=== PATIENT | female | born 1970 | race Caucasian/White ===

== ENCOUNTER 2022-04-01 06:59 | Day surgery (SDC) | payer BC, SELFPAY ==
--- OUTSIDE RECORDS SUMMARY | 2022-02-28 10:43 | XMS_ITS | Continuity of Care Document ---
:1970 Author Care Team Providers Name Role Phone MD Martha Langley Primary Care Physician MD Violet Castillo Attending Physician Allergies, Adverse Reactions, Alerts Allergen Type Severity Reaction Last Verified Status Updated Tetracycline Allergy Moderate soft spot February 07, Yes Active buldged as 2021 infant Penicillin Allergy Moderate rash February 07, Yes Active 2021 Social History Smoking Status Status Start Date End Date Date of Observat ion Never smoked tobacco February 07, 2 022 8:50am (finding) Additional Data Assigned Sex Female Medications Medication Status Dose Units Route Directions Qty Days Start End Ins tructions Date Date Calcium Active 1 Citrate-Vitami n D (Calcium Citrate/Vitami n D) 1 Tab TAB Cholecalcifero Active 5000 UNIT PO Daily 100 l (Vitamin D) 5,000 Unit TAB Citalopram Active 20 MG PO Daily Hydrobromide Estradiol Active 1 G Vaginal (Estradiol) 0.1 Mg/Gm CRE Hydroxyzine Active MG Pamoate (Vistaril) 25 Mg CAP Multiple Active 1 TAB PO Vitamin (Multi Vitamin) 1 Tab TAB Tizanidine Hcl Active 4 MG PO Every 8 Hours as needed Triamcinolone Active 1 SNEHA TOP Twice A Day APPLY TO Acetonide as needed AFFECT ED AREA (Ointment) Cyclobenzaprin Discontinu 10 MG PO Bedtime as J une e Hcl ed needed 2021 8:17a m Oxycodone/Acet Discontinu 1-2 TAB PO Every 4 February aminophen ed Hours as , , (Percocet) 5 needed 2020 2020 Mg/325 Mg TAB 10:50a 9:04a m m Immunizations Immunization Event Date Not Given Dose Assistant Product Manager Lot Vac cine Reason Number Number Informatio n Statement (VIS) Deta il COVID-19 Moderna October 082020 COVID-19 Moderna November 292020 COVID-19 Moderna July 112020 Influenza May 082009 Influenza June 172010 Influenza June 182011 Influenza May 112012 Influenza May 132014 Influenza May 122014 Influenza May 14, 2015 Influenza May 15, 2015 Influenza May 16, 2016 Influenza May 172017 Influenza June 152017 Influenza July 052018 Influenza July 022019 Influenza May 212020 [facility] September 302013 [facility] October 092013 Shingrix November 212021 Tdap December 27 (adolescent/adul 2012 t) Procedures Procedure Date Performed Status X-ray of right knee, one or February 07, 2022 completed two views Vital Signs Vital Reading Result Reference Range Collection Date/ Time Height 64 [in_i] February 07, 2022 8 :18am Height 162.56 cm February 07, 2022 8 :18am Weight 196.00 [lb_av] February 07, 2022 8 :18am Weight 88.500170 kg February 07, 2022 8 :18am Body Temperature 98.5 [degF] February 07, 2022 8:18am Body Temperature 36.94 [place] February 07, 2022 8:18am Body surface area 1.94 m2 February 07, 2022 8:18am BMI (Body Mass Index) 33.6 kg/m2 February 07, 2022 8:18am Advance Directives Advance Directive Response Recorded Date/Time Has patient completed a No February 21, 2021 8:05am Health Care Directive? Insurance Providers Guarantor Bj Curry Address [address] [id number] Contact Info. Home Phone: Payer Policy Id Coverage Id Subscriber's Subscriber Id Effective E xpiration Name Date Date [place] [id number] [place] [id number] Encounters Encounter Location(s) Arrival/Admit Date Discharge/Depart Date Provider(s) Registered Clinics February 07, 2022 [facility] on Practice 8:50am A Office Visit Orthopedic February 07, 2022 Anna, [facility] on Services 8:50am Violet [facility] February 07, 2022 [facility] 8[facility]am Violet CONTRERAS Recent Diagnosis Onset Date Pain Assessments Diagnosis Onset Date Resolution Status Pain Plan of Treatment Instructions from visit on: 02/07/22 Please follow the provider's instructions as discussed during your visit. Future Tests Future scheduled test information is unavailable Pending Tests Pending diagnostic test information is unavailable Future Visits Future appointment information is unavailable Referrals to Other Providers Referral information is unavailable Future Procedures Future procedure information is unavailable Future Medications Future medication information is unavailable Patient Instructions Patient instructions are unavailable Goals Ambulatory Goals Reach or maintain optimal well being.
[2022-04-01] VITALS (25 sets, daily range): BP systolic 85–120; BP diastolic 40–73; PULSE 52–74; RESP 14–18; TEMP 35.4–36.7; O2SAT 92–100; BMI 34.7
[2022-04-01] MEDS: CELECOXIB 200 MG CAPSULE PO ×2 (07:05→20:56)
[2022-04-01] MEDS: OXYCODONE (CR) 10 MG TAB.ER.12H PO (07:05)
[2022-04-01] MEDS: ACETAMINOPHEN 500 MG TABLET 1000 MG PO ×3 (07:05→19:47)
[2022-04-01] MEDS: LACTATED RINGERS 1000 ML 1,000 ML 100 ML IV (07:30)
[2022-04-01] MEDS: ETHYL CHLORIDE 1 APPLICATION 1 APPLIC TOPICAL (07:53)
[2022-04-01] MEDS: SODIUM CHLORIDE 0.9 % (FLUSH) 10 ML SYRINGE IVF (07:53)
--- NOTE | 2022-04-01 08:58 | SUR.PREOP ---
TIME OUT 857 RIGHT KNEE NERVE BLOCK PER PATIENT, MI CHIN FOR RIGHT TKA, CONSENT OBTAINED PRIOR
[2022-04-01] MEDS: fentaNYL 100 MCG/2 ML inj IVP (09:00)
[2022-04-01] MEDS: MIDAZOLAM HCL 1 MG/ML inj IVP (09:00)
--- NOTE | 2022-04-01 09:04 | W.PM.NB ---
Nerve Block Nerve Block Type of block requested by surgeon for post-operative analgesia: adductor canal Side: right Time out performed: Yes Verification of patient name: Yes Verification of date of : Yes Site marking: site marked Name of person performing procedure: Aldo Continuous monitoring Was continuous monitoring of O2 sat, B/P, monitoring specialist, recorded every 15 minutes?: Yes Procedure Checklist: sterile prep, needles and gloves Ultrasound guided. Images saved: Yes Medications given in 5ml increments after negative aspiration: Ropivicaine %: 0.5 mL: 20 Needle gauge: 22 Decadron (mg): 10 Precedex (mcg): 25 Patient tolerated procedure well: Yes Additional comments: Needle noted adjacent to nerve Block Charges Block Charge (with Pro Fee): Femoral Nerve Use of Ultrasound Machine for Block: Yes- US Guidance/pain block
--- NOTE | 2022-04-01 09:05 | W.PM.NB ---
Nerve Block Nerve Block Type of block requested by surgeon for post-operative analgesia: geniculars Side: right Time out performed: Yes Verification of patient name: Yes Verification of date of : Yes Site marking: site marked Name of person performing procedure: Aldo Continuous monitoring Was continuous monitoring of O2 sat, B/P, radiation monitor, recorded every 15 minutes?: Yes Procedure Checklist: sterile prep, needles and gloves Medications given in 5ml increments after negative aspiration: Ropivicaine %: 0.5 mL: 9 Needle gauge: 25 Patient tolerated procedure well: Yes Block Charges Block Charge (with Pro Fee): Genicular Nerve Block Use of Ultrasound Machine for Block: No
[2022-04-01] MEDS: CEFAZOLIN 2 GM INJ IVP (09:49)
--- NOTE | 2022-04-01 11:07 | CRLHL7_ITS ---
For Patients: As a result of the Cures Act, medical imaging exams and procedure reports are released immediately into your electronic medical record. You may view this report before your referring provider. If you have questions, please contact your health care provider. Indication: Postop knee. Technique: Two views. Comparison: None. Findings/Impression: Status post total knee arthroplasty with no fracture or evidence of other complication. Subcutaneous gas. No radiopaque foreign body. Dictated by Lowell Spencer MD @ 04/02/2022 7:57:07 AM (Electronically Signed)
--- NOTE | 2022-04-01 11:12 | PM.ORPRC ---
Procedure Note Date of procedure: 04/01/22 Procedure: SURGEON: Aleksandr Castillo MD ATMOSPHERIC TECHNICIAN: ANTHONY Watts PREOPERATIVE DIAGNOSIS: Right knee osteoarthritis POSTOPERATIVE DIAGNOSIS: Right knee osteoarthritis NAME OF OPERATION: Right total knee arthroplasty ANESTHESIA: Spinal ESTIMATED BLOOD LOSS: 0 mL COMPLICATIONS: None SPECIMENS: None DRAINS: None PREOPERATIVE ANTIBIOTICS: Ancef 2 grams IMPLANTS: 1. J&J Attune # 5 posterior stabilized femur 2. # 3 fixed-bearing tibia 3. # 5 posterior stabilized, 5 mm fixed-bearing polyethylene 4. 35 patella INDICATIONS: The patient is a 52-year-old female with a longstanding history of severe, unrelenting right knee pain secondary to end-stage (grade IV) right knee osteoarthritis. Despite appropriate nonoperative management, including activity modification, anti-inflammatories, [id number] pain medication, bracing, physical therapy, and injections they continue to have pain and disability. Operative intervention was offered. The risks, benefits and expected outcomes were discussed in detail. These included but were not limited to: Infection, bleeding, injury to blood vessel or nerve, venous thromboembolism. All questions were answered to their satisfaction. Use of an sales operations assistant was necessary throughout the case for patient positioning and safety, soft tissue retraction, and closure. PROCEDURE: Spinal anesthesia was administered. The patient was placed supine on the operating table. The sales operations assistant made sure the patient was positioned appropriately. The lower extremity was prepped and draped in the usual sterile fashion. The limb was exsanguinated with the Richard bandage. The pneumatic tourniquet was inflated to 300 mmHg. A standard anterior incision was made with the knee in flexion. Subcutaneous dissection was sharply taken through fascial layer #1. Full-thickness medial and lateral flaps were elevated. The sales operations assistant retracted the soft tissues and protected them throughout the case. A standard medial parapatellar approach was made. The patella was everted. The infrapatellar fat pad was preserved. The menisci and cruciate ligaments were sharply d?brided. Marginal osteophytes were d?brided with the rongeur. The drill was used to penetrate the femoral canal. The canal was aspirated and irrigated with pulse lavage. The intramedullary femoral guide was placed for a 5-degree valgus cut, removing 10 mm off the distal femur. The saw was used to make the cut. Whitesides line and the trans epicondylar axis were marked. The femoral sizing guide was pinned onto the distal femur. Three degrees of external rotation nicely parallels the transepicondylar axis. Pins were placed for posterior referencing. The four-in-one cutting guide was pinned onto the distal femur. The anterior, posterior, and chamfer cuts were made. The sales operations assistant protected the collateral ligaments. The box cutting guide was pinned. The box cuts were made. The boxed trial was placed and was an excellent fit. Drill holes for the lugs were made. Attention was then turned to the proximal tibia. The extramedullary tibial guide was placed for a neutral varus/valgus cut with 5 degrees of posterior slope, removing 2 mm based off the medial tibial surface. The sales operations assistant protected the collateral ligaments and the neurovascular bundle. The saw was used to make the cut. Trial components were placed. The knee was nicely balanced in both flexion and extension. Rotation of the tibial component was matched to the femur in full extension, matched to our tibial cutting pins, and marked with cautery. The trial components were removed. The tray was pinned by the sales operations assistant and the drill and the punch were used. The tray was removed. The punch was used again. We placed a bone plug in the femoral canal. Attention was then turned to the patella. [place] patellar thickness was 18 mm. The lobster claw resection guide was used with the 9.5 mm jeanne. The saw was used to make the cut, on top of the guide. Drill holes were made by the sales operations assistant. The trial was placed and was an excellent fit. Cancellous surfaces were irrigated with pulse lavage and thoroughly dried by the sales operations assistant. We cemented the tibial component, then the femoral component. A trial spacer was placed. The knee was brought into full extension. We then cemented the patellar component. Excessive cement was removed. The cement was allowed to harden. Any remaining excessive cement was removed with the osteotome. We impacted the 5 mm polyethylene onto the tibial tray. The knee was taken through a range of motion and was found to be nicely balanced in both flexion and extension. The patella tracks centrally. The sales operations assistant did a three minute dilute Betadine solution soak. The sales operations assistant irrigated the wound with 3 liters of normal saline via pulse lavage. The sales operations assistant reapproximated the extensor mechanism with #1 Vicryl in an interrupted [id number]-[id number] fashion. The sales operations assistant then ran the extensor mechanism with a #1 PDO Stratafix. The sales operations assistant closed the subcutaneous tissues with a 3-0 Stratafix and the skin with a running 3-0 Stratafix in a subcuticular fashion. Glue was used to seal the skin. The sales operations assistant placed a dry dressing, [place] stocking, and Polar Care. Sponge and needle counts were correct x2. The patient tolerated the procedure well. There were no apparent complications. They were carefully transferred to the hospital bed and taken to the postanesthesia care unit in satisfactory condition. PLAN: The patient will be mobilized with physical therapy. Aspirin will be used for DVT prophylaxis. They will be discharged to home once medically appropriate.
--- NOTE | 2022-04-01 11:40 | W.ANESCHARGE ---
Anesthesia Charges Start Date/Time Anesthesia Start Date: 04/01/22 Anesthesia Start Time: 09:40 Stop Date/Time Anesthesia Stop Date: 04/01/22 Anesthesia Stop Time: 11:32 Summary Emergency: No
[2022-04-01] MEDS: LACTATED RINGERS 1000 ML 1,000 ML 35 ML IV (11:56)
--- NOTE | 2022-04-01 11:58 | SUR.PHASEI ---
xray here for 2 views right knee
--- NOTE | 2022-04-01 12:16 | W.ANESCHARGE ---
Anesthesia Charges Start Date/Time Anesthesia Start Date: 04/01/22 Anesthesia Start Time: 09:40 Stop Date/Time Anesthesia Stop Date: 04/01/22 Anesthesia Stop Time: 11:32 Summary Emergency: No
[2022-04-01] MEDS: OXYCODONE 5 MG TABLET PO ×3 (14:31→23:36)
--- NOTE | 2022-04-01 15:04 | PM.IMCN1 ---
Date of Consult Consult date: 04/01/22 Requesting Physician: Orthopedics Primary Care Provider: Martha Langley MD Consult Narrative Reason for consult: Management of medical problems after surgery Narrative: Irene Curry is a 52 year old female seen for management of medical problems after right total knee arthroplasty. Procedure performed today by Dr. Castillo who requests consultation. There were no operative complications. Patient reports she has just beginning does feel her knee pain as her block is starting to wear off. She has no nausea, dyspnea, shortness of breath. Preoperatively she reports she was well. No recent illness. No problems identified on her preop physical. With previous surgeries she has had no problems with anesthesia, bleeding or clotting. She apparently has a heterozygous prothrombin gene mutation which was discovered when her siblings had DVTs. She has been advised by Hematology consult to receive routine prophylaxis for DVT Review of Systems Narrative: No recent illness. She reports other than her right knee pain she has generally been doing well. She does have some numbness on the outside of her left leg from previous lumbar disc disease and nerve root impingement. This is stable. She has a tendency to constipation which he manages with extra fiber at home PFSH [facility], [facility] Medical History (Updated 04/01/22 @ 15:11 by Jose Angel Paulino MD) Anxiety Depression GERD (gastroesophageal reflux disease) Lumbar disc disease Obesity Prothrombin gene mutation Surgical History H/O gastric sleeve Hx laparoscopic cholecystectomy Family History Father Diabetes Gout Coronary artery disease Prothrombin gene mutation Mother Boecks sarcoidosis Idiopathic interstitial fibrosis of lung syndrome Brother ALL (acute lymphoblastic leukemia) Cardiac valve prolapse Sister Cardiac valve prolapse DVT (deep venous thrombosis) Boecks sarcoidosis Toxic megacolon Social History (Updated 04/01/22 @ 15:12 by Jose Angel Paulino MD) Narrative: 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 She lives with her in [email or web address]. She has 3 steps to get into the house but then lives on 1 level Smoking Status: Never smoker How often do you have a drink containing alcohol: never AUDIT-C Alcohol total score: 0 Non-prescribed substance use: denies use and other Non-prescribed substance use details: vitamins, citrocal, Vitamin D, Aleve, Mucinex, Saira Caffeine: Yes (Coke, 24 oz/day) Meds Home Medications and Allergies Home Medications Medication Instructions Recorded Confirmed Type calcium carbonate 600 mg calcium 600 mg PO BID 03/31/22 04/01/22 History (1,500 mg) tablet (Calcium) cholecalciferol (vitamin D3) 125 5,000 unit PO DAILY 03/31/22 04/01/22 History mcg (5,000 unit) tablet (Vitamin D3) citalopram 20 mg tablet 20 mg PO DAILY 03/31/22 04/01/22 History multivitamin 1 tab PO DAILY 03/31/22 04/01/22 History Allergies Allergy/AdvReac Type Severity Reaction Status Date / Time Penicillins Allergy Rash Verified 04/01/22 07:11 Tetracyclines Allergy Unknown Verified 04/01/22 07:11 Exam Const: Vital Signs, click to edit/add: Vital Signs - 24 hr 04/01/22 07:31 04/01/22 09:00 04/01/22 09:05 Temperature 97.2 F L Pulse Rate 74 64 58 L Pulse Rate [Right Pulse Oximeter] Respiratory Rate 16 14 14 Blood Pressure 120/65 102/57 L 104/66 Blood Pressure [Le ft Arm] Pulse Oximetry 95 94 94 04/01/22 09:15 04/01/22 11:30 04/01/22 11:35 Temperature 98 F Pulse Rate 55 L 59 L 56 L Pulse Rate [Right Pulse Oximeter] Respiratory Rate 14 16 16 Blood Pressure 102/57 L 85/40 L 92/43 L Blood Pressure [Le ft Arm] Pulse Oximetry 96 96 96 04/01/22 11:40 04/01/22 11:45 04/01/22 11:50 Temperature Pulse Rate 53 L 53 L 59 L Pulse Rate [Right Pulse Oximeter] Respiratory Rate 16 16 16 Blood Pressure 100/56 L 95/52 L 98/56 L Blood Pressure [Le ft Arm] Pulse Oximetry 99 99 98 04/01/22 11:55 04/01/22 12:00 04/01/22 12:05 Temperature 98.1 F Pulse Rate 56 L 55 L 55 L Pulse Rate [Right Pulse Oximeter] Respiratory Rate 16 16 16 Blood Pressure 101/61 108/50 L 95/46 L Blood Pressure [Le ft Arm] Pulse Oximetry 99 99 99 04/01/22 12:30 07/26/22 12:45 04/01/22 13:00 Temperature 95.9 F L 95.8 F L 95.8 F L Pulse Rate 55 L Pulse Rate [Right Pulse Oximeter] 56 L 52 L Respiratory Rate 16 16 16 Blood Pressure Blood Pressure [Le ft Arm] 102/63 112/73 104/58 L Pulse Oximetry 96 97 04/01/22 13:15 04/01/22 13:30 04/01/22 14:00 Temperature 96.1 F L 96.6 F L Pulse Rate Pulse Rate [Right Pulse Oximeter] 63 74 69 Respiratory Rate 16 16 16 Blood Pressure Blood Pressure [Le ft Arm] 111/66 105/58 L 109/59 L Pulse Oximetry 96 97 96 04/01/22 14:30 Temperature 95.9 F L Pulse Rate Pulse Rate [Right Pulse Oximeter] 69 Respiratory Rate 18 Blood Pressure Blood Pressure [Le ft Arm] 107/53 L Pulse Oximetry 97 Assessment and Plan Assessment and plan (1) Status post right knee replacement: Status: Acute (2) Prothrombin gene mutation: Problem comment: Advised routine DVT prophylaxis Status: Acute Assessment and Plan: Routine DVT prophylaxis
[2022-04-01] MEDS: CEFAZOLIN 2 GM in 0.9 % SODIUM CHLORIDE Mini-bag 100 ML IVPB ×2 (16:17→23:36)
[2022-04-01] MEDS: CALCIUM CARBONATE 500 MG TABLET PO (17:34)
[2022-04-01] MEDS: ASPIRIN 81 MG TABLET EC PO (20:56)
[2022-04-01] MEDS: SENNOSIDES 1 TAB TABLET 2 TAB PO (20:57)
--- NOTE | 2022-04-01 22:46 | PC.NURSE ---
[id number]: Patient friendly and cooperative with cares. A1, walker, GB. Walked in halls x3. Tolerated well. Rates pain 1-2/10. PRN Oxycodone x1 for relief. CMS intact. Dressing to R. knee C/D/I. Tolerating regular diet. Voiding.
[2022-04-02] MEDS: ACETAMINOPHEN 500 MG TABLET 1000 MG PO ×2 (01:49→08:16)
[2022-04-02 03:00] VITALS: BP 120/73; PULSE 67; RESP 18; TEMP 36.1; O2SAT 96
--- NOTE | 2022-04-02 05:02 | PC.NURSE ---
[id number] Pt rested well during night, up with SBA/walker to br, tolerates ambulating very well, minimal pain noted to knee cap and behind knee, 10/17, controlled with prn 5mg oxycodone. cryo-cuff to R knee throughout night, Dressing C/D/I. tolerating PO intake, denies N/V.
[2022-04-02] MEDS: OXYCODONE 5 MG TABLET PO ×2 (06:28→10:59)
[2022-04-02 07:31] LABS: Basophils Percent Auto 0.2 % (0.0-3.0); Hemoglobin* 12.8 gm/dL (12.0-16.0); Immature Granulocytes Abs Auto 0.04 K/uL (0.00-0.30); Lymphocytes Percent Auto 14.6 % (20-44); Mean Corpuscular HGB Conc 34 gm/dL (32-36); Mean Corpuscular Hemoglobin 31 pg (26-34); Mean Corpuscular Volume 91 fL (80-100); Monocytes Percent Auto 4.5 % (0.0-11.0); Neutrophils Percent Auto 80.4 % (42.0-72.0); Platelet Count* 522 K/uL (140-440); RDW Coefficient of Variation % 11.7 % (11.5-15.5); White Blood Count* 12.23 K/uL (4.50-11.00)
[2022-04-02 07:33] LABS: Slide Review Reflex No
[2022-04-02 07:37] VITALS: BP 125/54; PULSE 69; RESP 18; TEMP 36.4; O2SAT 99
[2022-04-02 07:46] LABS: Potassium* 3.9 mmol/L (3.6-5.1)
[2022-04-02 07:47] LABS: INR 0.96 (0.91-1.10); Prothrombin Time 13.2 Seconds
[2022-04-02 07:49] LABS: Blood Urea Nitrogen* 16 mg/dL (7-30); Creatinine* 0.6 mg/dL (0.5-1.5); Est. Creatinine Clearance* 93.64; Estimated Glomerular Filt Rate 107 ml/min
[2022-04-02] MEDS: CEFAZOLIN 2 GM in 0.9 % SODIUM CHLORIDE Mini-bag 100 ML IVPB (08:15)
[2022-04-02] MEDS: CALCIUM CARBONATE 500 MG TABLET PO (08:16)
--- NOTE | 2022-04-02 08:42 | P.ORPN_ITS ---
Subjective Subjective Time Seen by Provider: 07:15 Date Seen: 04/02/22 Principal diagnosis: Status post right total knee arthroplasty Interval history: The patient is quite comfortable this morning at rest in the recliner. She states she has been ambulating well since her surgery. Ortho Exam Narrative Exam Narrative: Alert and oriented x3. Patient is in no acute distress. Converses without labored breathing. Hearing is grossly intact. Examination of the right knee shows the dressing is intact. There is no erythema or ecchymosis or sign of infection. Minimal soft tissue edema about the right knee. Minimal effusion. Bilateral calves are soft and nontender. CMS is intact right lower extremity. Const Vital Signs, click to edit/add: Vital Signs - 24 hr 04/01/22 09:00 04/01/22 09:05 04/01/22 09:15 Temperature Pulse Rate 64 58 L 55 L Pulse Rate [Right Pulse Oximeter] Respiratory Rate 14 14 14 Blood Pressure 102/57 L 104/66 102/57 L Blood Pressure [Left Arm] Pulse Oximetry 94 94 96 04/01/22 11:30 04/01/22 11:35 04/01/22 11:40 Temperature 98 F Pulse Rate 59 L 56 L 53 L Pulse Rate [Right Pulse Oximeter] Respiratory Rate 16 16 16 Blood Pressure 85/40 L 92/43 L 100/56 L Blood Pressure [Left Arm] Pulse Oximetry 96 96 99 04/01/22 11:45 04/01/22 11:50 04/01/22 11:55 Temperature Pulse Rate 53 L 59 L 56 L Pulse Rate [Right Pulse Oximeter] Respiratory Rate 16 16 16 Blood Pressure 95/52 L 98/56 L 101/61 Blood Pressure [Left Arm] Pulse Oximetry 99 98 99 04/01/22 12:00 04/01/22 12:05 04/01/22 12:30 Temperature 98.1 F 95.9 F L Pulse Rate 55 L 55 L 55 L Pulse Rate [Right Pulse Oximeter] Respiratory Rate 16 16 16 Blood Pressure 108/50 L 95/46 L Blood Pressure [Left Arm] 102/63 Pulse Oximetry 99 99 04/01/22 12:45 04/01/22 13:00 04/01/22 13:15 Temperature 95.8 F L 95.8 F L 96.1 F L Pulse Rate Pulse Rate [Right Pulse Oximeter] 56 L 52 L 63 Respiratory Rate 16 16 16 Blood Pressure Blood Pressure [Left Arm] 112/73 104/58 L 111/66 Pulse Oximetry 96 97 96 04/01/22 13:30 04/01/22 14:00 04/01/22 14:30 Temperature 96.6 F L 95.9 F L Pulse Rate Pulse Rate [Right Pulse Oximeter] 74 69 69 Respiratory Rate 16 16 18 Blood Pressure Blood Pressure [Left Arm] 105/58 L 109/59 L 107/53 L Pulse Oximetry 97 96 97 04/01/22 15:30 04/01/22 16:30 04/01/22 17:30 Temperature 97.4 F L 97.4 F L 97.4 F L Pulse Rate Pulse Rate [Right Pulse Oximeter] 69 64 60 Respiratory Rate 16 16 18 Blood Pressure Blood Pressure [Left Arm] 101/53 L 102/63 103/64 Pulse Oximetry 99 99 96 04/01/22 18:30 04/01/22 19:00 04/01/22 23:00 Temperature 97.6 F 97.6 F 96.8 F L Pulse Rate Pulse Rate [Right Pulse Oximeter] 70 70 61 Respiratory Rate 16 16 16 Blood Pressure Blood Pressure [Left Arm] 112/59 L 112/59 L 118/57 L Pulse Oximetry 100 100 97 04/02/22 03:00 04/02/22 07:37 Temperature 97.0 F L 97.6 F Pulse Rate Pulse Rate [Right Pulse Oximeter] 67 69 Respiratory Rate 18 18 Blood Pressure Blood Pressure [Left Arm] 120/73 125/54 L Pulse Oximetry 96 99 Assessment and Plan Assessment and plan (1) Status post right knee replacement: Status: Acute Assessment and Plan: Plan for discharge is today to home if they meet discharge criteria. DVT prophylaxis includes aspirin 81 mg twice daily x1 month, Jaron stockings x1 month may remove for 1 hr per day, frequent ambulation every hour throughout the day. Remove dressing in 1 week. Observe wound and phone Orthopedics with any quest ions or concerns Return to clinic in 1 week for a wound check Return to clinic in [address] Castillo Minimize narcotic use. Wean off and discontinue soon as possible. Activities as tolerated. No strenuous activity. Outpatient physical therapy as scheduled. Ice and elevate the operative extremity. No restriction on ice. (2) Prothrombin gene mutation: Problem details: Advised routine DVT prophylaxis Status: Acute
[2022-04-02] MEDS: SENNOSIDES 1 TAB TABLET 2 TAB PO (08:49)
[2022-04-02] MEDS: MULTIVITAMIN/MINERALS 1 TABLET 1 TAB PO (08:49)
[2022-04-02] MEDS: ASPIRIN 81 MG TABLET EC PO (08:49)
[2022-04-02] MEDS: CELECOXIB 200 MG CAPSULE PO (08:49)
[2022-04-02] MEDS: CITALOPRAM HYDROBROMIDE 20 MG TABLET PO (08:50)
--- NOTE | 2022-04-02 11:22 | PM.IMPN1 ---
Progress Note: A&P Assessment and plan (1) Prothrombin gene mutation: Problem details: Advised routine DVT prophylaxis Status: Acute Plan 1. s/p RTKA; pain control; diet; dvt ppx per surgery. POD#1; doing well discharging today Subjective Date Seen: 04/02/22 Interval history: patient tolerating diet denies CP denies SOB tolerating diet Exam Narrative: Exam Narrative: Gen: NAD HEENT: NCAT EOMI MMM CV: bradycardci normal s1 s2 LUngs: CTAB Abd: Soft, nt, nd Const: Vital Signs, click to edit/add: Vital Signs - 24 hr 04/01/22 11:30 04/01/22 11:35 04/01/22 11:40 Temperature 98 F Pulse Rate 59 L 56 L 53 L Pulse Rate [Right Pulse Oximeter] Respiratory Rate 16 16 16 Blood Pressure 85/40 L 92/43 L 100/56 L Blood Pressure [Le ft Arm] Pulse Oximetry 96 96 99 04/01/22 11:45 04/01/22 11:50 04/01/22 11:55 Temperature Pulse Rate 53 L 59 L 56 L Pulse Rate [Right Pulse Oximeter] Respiratory Rate 16 16 16 Blood Pressure 95/52 L 98/56 L 101/61 Blood Pressure [Le ft Arm] Pulse Oximetry 99 98 99 04/01/22 12:00 04/01/22 12:05 04/01/22 12:30 Temperature 98.1 F 95.9 F L Pulse Rate 55 L 55 L 55 L Pulse Rate [Right Pulse Oximeter] Respiratory Rate 16 16 16 Blood Pressure 108/50 L 95/46 L Blood Pressure [Le ft Arm] 102/63 Pulse Oximetry 99 99 04/01/22 12:45 04/01/22 13:00 04/01/22 13:15 Temperature 95.8 F L 95.8 F L 96.1 F L Pulse Rate Pulse Rate [Right Pulse Oximeter] 56 L 52 L 63 Respiratory Rate 16 16 16 Blood Pressure Blood Pressure [Le ft Arm] 112/73 104/58 L 111/66 Pulse Oximetry 96 97 96 04/01/22 13:30 04/01/22 14:00 04/01/22 14:30 Temperature 96.6 F L 95.9 F L Pulse Rate Pulse Rate [Right Pulse Oximeter] 74 69 69 Respiratory Rate 16 16 18 Blood Pressure Blood Pressure [Le ft Arm] 105/58 L 109/59 L 107/53 L Pulse Oximetry 97 96 97 04/01/22 15:30 04/01/22 16:30 04/01/22 17:30 Temperature 97.4 F L 97.4 F L 97.4 F L Pulse Rate Pulse Rate [Right Pulse Oximeter] 69 64 60 Respiratory Rate 16 16 18 Blood Pressure Blood Pressure [Le ft Arm] 101/53 L 102/63 103/64 Pulse Oximetry 99 99 96 04/01/22 18:30 04/01/22 19:00 04/01/22 23:00 Temperature 97.6 F 97.6 F 96.8 F L Pulse Rate Pulse Rate [Right Pulse Oximeter] 70 70 61 Respiratory Rate 16 16 16 Blood Pressure Blood Pressure [Le ft Arm] 112/59 L 112/59 L 118/57 L Pulse Oximetry 100 100 97 04/02/22 03:00 04/02/22 07:37 Temperature 97.0 F L 97.6 F Pulse Rate Pulse Rate [Right Pulse Oximeter] 67 69 Respiratory Rate 18 18 Blood Pressure Blood Pressure [Le ft Arm] 120/73 125/54 L Pulse Oximetry 96 99 Labs Labs: Laboratory Results - last 24 hr 04/02/22 04/02/22 04/02/22 06:20 06:20 06:20 WBC 12.23 H RBC 4.20 Hgb 12.8 Hct 38.0 MCV 91 MCH 31 MCHC 34 RDW Coeff of [place] 11.7 Plt Count 522 H Neut % (Auto) 80.4 H Lymph % (Auto) 14.6 L [place] % (Auto) 4.5 Eos % (Auto) 0.0 Baso % (Auto) 0.2 Neut # (Auto) 9.80 H Lymph # (Auto) 1.80 [place] # (Auto) 0.60 Eos # (Auto) 0.00 Baso # (Auto) 0.00 Abs Immat Gran (auto) 0.04 INR 0.96 Potassium 3.9 BUN 16 Creatinine 0.6 Estimated Creat Clear 93.64 Estimated GFR 107
--- NOTE | 2022-04-02 12:53 | PC.NURSE ---
Discharge: Patient pleasant and cooperative. Up with SBA and walker. Tolerating regular diet. Rates pain 1-3/10, managed with continuous ice and PRN medication. Up walking in halls x3 today, tolerating activity well. IV removed with catheter intact. Vitals stable and WNL. Dressing over right knee dry and intact with small amount of swelling. Discharge instructions given, reviewed new medication orders, follow ups reviewed. Patient discharged from unit @ 1200 via wheelchair, met at front entrance, discharge to home.
== END 2022-04-02 12:00 | disposition home or self-care (01) ==
LOC: OR 13:36 → MEDSURG 13:55
PROVIDERS: PCP Family Medicine; Visit Provider Orthopaedic Surgery
PROC: (CPT 27447; principal; 2022-04-01 09:30)
DX: M17.11 Unilateral primary osteoarthritis, right knee (principal); D68.52 Prothrombin gene mutation; K21.9 Gastro-esophageal reflux disease without esophagitis; M51.36 Other intervertebral disc degeneration, lumbar region; E66.9 Obesity, unspecified; Z68.34 Body mass index [BMI] 34.0-34.9, adult
CPT/HCPCS: 27447; 01402; 36415; 64447; 64454; 73560; 76942; 82565; 84132; 84295; 84520; 85025; 85610; 97110; 97116; 97161; 97165; 97535; A9153; A9270; C1776; J0690; J1100; J2250; J2370; J2704; J2795; J3010; J7120